=== PATIENT | male | born 1990 | race African-American/Black ===

== ENCOUNTER 2018-02-26 12:52 | Inpatient (IN) ==
[~2018-02-26 12:52] MED LIST: Lidocaine PF 1% Inj 5 ML Syringe INFILTRATN ONE; Phenylephrine/NS 1000 MCG/10ML Syringe IV.PUSH ONE; Succinylcholine Inj 100 MG/5 ML Syringe IV.PUSH ONE
[2018-02-26] MEDS ORDERED: Diphtheria/Tetanus/Pertussis Vaccine Inj 0.5 ML Syringe IM ONE (12:58)
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
[2018-02-26] MEDS ORDERED: ceFAZolin 2 GM Premix Inj 2 GM/50 ML PIGGYBACK IV.SIG ONE (13:13)
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
[2018-02-26 13:21] LABS: Baso % (Auto) 1.1 % (0.0-2.0); Eos % (Auto) 1.1 % (0.0-4.0); Hematocrit 38.1 % (39.0-51.0); Hemoglobin 12.6 gm/dL (13.0-17.0); Lymph # (Auto) 1.6 th/mm3 (1.0-4.8); Mean Corpuscular HGB Conc 33.1 % (32.0-36.0); Mean Corpuscular Hemoglobin 30.4 pg (27.0-34.0); Mean Corpuscular Volume 91.9 fL (80.0-100.0); Mean Platelet Volume 6.9 fL (7.0-11.0); Mono # (Auto) 0.2 th/mm3 (0.0-0.9); Neut # (Auto) 1.3 th/mm3 (1.8-7.7); Neut % (Auto) 40.8 % (16.0-70.0); Platelet Count 252 th/mm3 (150-450); Red Blood Count 4.15 mil/mm3 (4.50-5.90); White Blood Count 3.1 th/mm3 (4.0-11.0)
[2018-02-26 13:38] LABS: Calcium 7.9 mg/dL (8.5-10.1); Carbon Dioxide 20.7 meq/L (21.0-32.0); Potassium 3.1 meq/L (3.5-5.1)
[2018-02-26 13:39] LABS: INR 1.1 Ratio; Prothrombin Time 10.7 sec (9.8-11.6)
[2018-02-26 14:06] LABS: ABG Base Excess -6.9 mmol/L (-2-2); ABG PCO2 34 mmHg (38-42); ABG PO2 350 mmHG (61-120)
[2018-02-26] MEDS ORDERED: Propofol Inj 500 MG/50 ML Vial ONE ×2 (14:07→16:34)
[2018-02-26] MEDS ORDERED: Sodium Bicarbonate 8.4% Inj 50 MEQ/50 ML Syringe ONE (14:09)
[2018-02-26] MEDS: Heparin - SQ 10,000 UNITS/ML Vial ONE ×2 (14:30→17:48)
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
[2018-02-26] MEDS: Propofol 1000 mg/100 ml Inj 1,000 MG/100 ML BOTTLE IV.CONT PRN (15:15)
[2018-02-26] MEDS ORDERED: Promethazine 25 MG Supp RECTAL PRN (15:20)
[2018-02-26] MEDS ORDERED: Bisacodyl 10 MG Supp RECTAL PRN (15:20)
[2018-02-26] MEDS ORDERED: Naloxone Inj 0.4 MG/ML Vial IV.PUSH PRN (15:20)
[2018-02-26] MEDS ORDERED: Post-op Orders (for Pharmacy) OTHER ONE (15:20)
[2018-02-26] MEDS ORDERED: fentaNYL Citrate Inj 100 MCG/2 ML Ampul ONE (15:21)
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
[2018-02-26] MEDS ORDERED: Oral Hygiene Kit OROPHARYNG SCH (16:00)
[2018-02-26 16:21] LABS: Hematocrit 40.8 % (39.0-51.0); Hemoglobin 13.3 gm/dL (13.0-17.0)
[2018-02-26] MEDS: fentaNYL 10 mcg/mL Premix Drip 2,500 MCG/250 ML BAG IV.SIG PRN (17:10)
[2018-02-26 17:40] LABS: Amphetamine Screen,Urine Neg (Neg); Bacteria,Urine Rare /hpf; Barbiturate Screen,Urine Neg (Neg); Bilirubin,Urine Negative (Negative); Cannabinoid Screen,Urine Neg (Neg); Clarity,Urine Clear (Clear); Cocaine Screen,Urine Neg (Neg); Color,Urine Yellow (Yellw/Straw); Glucose,Urine (UA) 50 mg/dL (Negative); Leukocyte Esterase,Urine Negative (Negative); Nitrite,Urine Negative (Negative)
[2018-02-26 17:42] LABS: Opiate Screen,Urine Neg (Neg)
[2018-02-26] MEDS: Sod Chloride 0.9% Inj 1,000 ML IV.CONT SCH ×2 (17:54→21:28)
[2018-02-26 18:04] LABS: ABG Base Excess -4.8 mmol/L (-2-2); ABG PCO2 44 mmHg (38-42); ABG PO2 160 mmHg (61-120)
[2018-02-26] MEDS: Pantoprazole Inj 40 MG Vial IV.PUSH SCH (18:05)
[2018-02-26] MEDS: Midazolam 50 MG/50 ML Inj 50 MG/50 ML BAG IV.CONT PRN (18:26)
[2018-02-26] MEDS ORDERED: Chlorhexidine 0.12% Oral Kit 15 ML UDC OROPHARYNG SCH (20:00)
[2018-02-26] MEDS ORDERED: Docusate Sodium Liq 100 MG/10 ML UDC PO SCH (21:00)
[2018-02-26] MEDS: Chlorhexidine 0.12% Oral Kit 15 ML UDC OROPHARYNG SCH (21:29)
[2018-02-26] MEDS: Senna/Docusate Sodium 8.6/50 MG Tablet PO SCH (21:30)
[2018-02-27] MEDS ORDERED: Chlorhexidine Gluconate 2% 1 Pack (2 Cloths) TOPICAL PRN (04:00)
[2018-02-27] MEDS: Oral Hygiene Kit OROPHARYNG SCH ×4 (04:00→17:05)
[2018-02-27 04:28] LABS: Baso % (Auto) 0.3 % (0.0-2.0); Eos % (Auto) 0.1 % (0.0-4.0); Hematocrit 36.7 % (39.0-51.0); Hemoglobin 12.5 gm/dL (13.0-17.0); Lymph # (Auto) 1.5 th/mm3 (1.0-4.8); Mean Corpuscular HGB Conc 33.9 % (32.0-36.0); Mean Corpuscular Volume 88.3 fL (80.0-100.0); Mean Platelet Volume 7.4 fL (7.0-11.0); Mono # (Auto) 0.8 th/mm3 (0.0-0.9); Mono % (Auto) 6.1 % (0.0-8.0); Neut # (Auto) 10.3 th/mm3 (1.8-7.7); Neut % (Auto) 81.5 % (16.0-70.0); Platelet Count 150 th/mm3 (150-450); Red Blood Count 4.16 mil/mm3 (4.50-5.90); Red Cell Distribution Width 13.7 % (11.6-17.2); White Blood Count 12.7 th/mm3 (4.0-11.0)
[2018-02-27 04:57] LABS: Calcium 7.2 mg/dL (8.5-10.1); Carbon Dioxide 25.9 meq/L (21.0-32.0); Potassium 4.5 meq/L (3.5-5.1)
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
[2018-02-27 05:12] LABS: Total Protein 4.7 g/dL (6.4-8.2)
[2018-02-27 05:49] LABS: ABG Base Excess 0.2 mmol/L (-2-2); ABG PCO2 36 mmHg (38-42); ABG PO2 130 mmHg (61-120)
[2018-02-27] MEDS: fentaNYL 10 mcg/mL Premix Drip 2,500 MCG/250 ML BAG IV.SIG PRN ×2 (06:47→22:02)
[2018-02-27] MEDS: Sod Chloride 0.9% Inj 1,000 ML IV.CONT SCH ×3 (06:48→23:36)
[2018-02-27] MEDS: Midazolam 50 MG/50 ML Inj 50 MG/50 ML BAG IV.CONT PRN ×3 (06:50→22:03)
[2018-02-27] MEDS: Chlorhexidine Gluconate 2% 1 Pack (2 Cloths) TOPICAL SCH (08:07)
[2018-02-27] MEDS: Propofol 1000 mg/100 ml Inj 1,000 MG/100 ML BOTTLE IV.CONT PRN ×2 (08:15→18:51)
[2018-02-27] MEDS: Chlorhexidine 0.12% Oral Kit 15 ML UDC OROPHARYNG SCH ×2 (08:40→20:49)
[2018-02-27] MEDS: Senna/Docusate Sodium 8.6/50 MG Tablet PO SCH ×2 (08:40→20:49)
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
[2018-02-27] MEDS: Pantoprazole Inj 40 MG Vial IV.PUSH SCH (17:05)
[2018-02-27] MEDS: Acetaminophen 325 MG Tablet PO PRN (23:36)
[2018-02-28] MEDS: Oral Hygiene Kit OROPHARYNG SCH ×4 (00:30→18:25)
[2018-02-28] MEDS: Midazolam 50 MG/50 ML Inj 50 MG/50 ML BAG IV.CONT PRN ×5 (03:17→18:32)
[2018-02-28] MEDS: Chlorhexidine Gluconate 2% 1 Pack (2 Cloths) TOPICAL SCH (03:30)
[2018-02-28 05:34] LABS: Baso % (Auto) 0.4 % (0.0-2.0); Eos # (Auto) 0.1 th/mm3 (0.0-0.4); Eos % (Auto) 1.2 % (0.0-4.0); Hematocrit 29.5 % (39.0-51.0); Lymph # (Auto) 0.9 th/mm3 (1.0-4.8); Lymph % (Auto) 9.5 % (9.0-44.0); Mean Corpuscular HGB Conc 34.1 % (32.0-36.0); Mean Corpuscular Volume 91.2 fL (80.0-100.0); Mean Platelet Volume 7.5 fL (7.0-11.0); Mono # (Auto) 0.6 th/mm3 (0.0-0.9); Neut # (Auto) 8.1 th/mm3 (1.8-7.7); Neut % (Auto) 82.9 % (16.0-70.0); Platelet Count 115 th/mm3 (150-450); Red Blood Count 3.24 mil/mm3 (4.50-5.90); Red Cell Distribution Width 13.4 % (11.6-17.2); White Blood Count 9.8 th/mm3 (4.0-11.0)
[2018-02-28 05:45] LABS: ABG Base Excess -1.7 mmol/L (-2-2); ABG PCO2 34 mmHg (38-42); ABG PO2 172 mmHg (61-120)
[2018-02-28 06:02] LABS: Alanine Aminotransferase 429 U/L (12-78); Albumin 1.9 g/dL (3.4-5.0); Alkaline Phosphatase 58 U/L (45-117); Anion Gap 7 meq/L (5-15); Aspartate Aminotransferase 390 U/L (15-37); Blood Urea Nitrogen 8 mg/dL (7-18); Calcium 7.4 mg/dL (8.5-10.1); Carbon Dioxide 24.5 meq/L (21.0-32.0); Chloride 112 meq/L (98-107); Glomerular Filtration Rate Greater Than 89 mL/min (>89); Glucose,Random 93 mg/dL (74-106); Potassium 3.7 meq/L (3.5-5.1); Sodium 143 meq/L (136-145); Total Protein 4.5 g/dL (6.4-8.2)
--- NOTE | 2018-02-28 06:31 | XR ---
EXAM DATE: 02/28/2018 6:29 AM EDT AGE/SEX: 28 years / Male INDICATIONS: Shortness of breath. CLINICAL DATA: This is the patient's subsequent encounter. Patient reports that signs and symptoms h ave been present for 2 days and indicates a pain score of Nonresponsive. MEDICAL/SURGICAL HISTORY: Non-responsive. Non-responsive. COMPARISON: [facility] [place] 1[place], [place]/27/2018. . FINDINGS: A single AP view of the chest demonstrates the lungs to be symmetrically aerated without evidence of mass, infiltrate or effusion. The cardiomediastinal contours are unremarkable. Osseous structures a re intact. Endotracheal tube and enteric tube are noted. CONCLUSION: Lungs are clear. Electronically signed by: Juan Mcfarland MD 02/28/2018 6:30 AM EDT
[2018-02-28] MEDS: Sod Chloride 0.9% Inj 1,000 ML IV.CONT SCH ×2 (08:14→18:27)
[2018-02-28] MEDS: Chlorhexidine 0.12% Oral Kit 15 ML UDC OROPHARYNG SCH ×2 (08:14→20:58)
[2018-02-28] MEDS: Senna/Docusate Sodium 8.6/50 MG Tablet PO SCH ×2 (08:15→20:58)
[2018-02-28] MEDS: fentaNYL 10 mcg/mL Premix Drip 2,500 MCG/250 ML BAG IV.SIG PRN ×2 (09:13→18:27)
[2018-02-28] MEDS ORDERED: Phenylephrine/NS 1000 MCG/10ML Syringe IV.PUSH ONE (12:00)
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
[2018-02-28] MEDS: Pantoprazole Inj 40 MG Vial IV.PUSH SCH (18:25)
[2018-02-28] MEDS ORDERED: fentaNYL Citrate Inj 100 MCG/2 ML Ampul ONE (18:55)
[2018-03-01] MEDS: Oral Hygiene Kit OROPHARYNG SCH ×4 (00:24→15:13)
[2018-03-01] MEDS: Midazolam 50 MG/50 ML Inj 50 MG/50 ML BAG IV.CONT PRN (00:40)
[2018-03-01] MEDS: Chlorhexidine Gluconate 2% 1 Pack (2 Cloths) TOPICAL SCH (04:32)
[2018-03-01] MEDS: Sod Chloride 0.9% Inj 1,000 ML IV.CONT SCH ×2 (04:51→13:59)
--- NOTE | 2018-03-01 05:25 | XR ---
EXAM DATE: 03/01/2018 4:51 AM EDT AGE/SEX: 28 years / Male INDICATIONS: Short of breath. CLINICAL DATA: This is the patient's subsequent encounter. Patient reports that signs and symptoms h ave been present for 1 week and indicates a pain score of 0/10. MEDICAL/SURGICAL HISTORY: Non-responsive. Non-responsive. COMPARISON: C, CHEST 1V SINGLE AP, 02/28/2018. . FINDINGS: Endotracheal tube and enteric tube are noted. The tip of the NG tube is scarring to visualize, belie bing to extend to the distal esophagus. Air bronchogram formation left lower lobe. Cardiomegaly. CONCLUSION: Left lower lobe airspace disease. Electronically signed by: Juan Mcfarland MD 03/01/2018 5:24 AM EDT
[2018-03-01] MEDS: fentaNYL 10 mcg/mL Premix Drip 2,500 MCG/250 ML BAG IV.SIG PRN (06:02)
[2018-03-01 06:18] LABS: Baso % (Auto) 0.3 % (0.0-2.0); Hematocrit 32.8 % (39.0-51.0); Hemoglobin 10.9 gm/dL (13.0-17.0); Lymph # (Auto) 0.5 th/mm3 (1.0-4.8); Lymph % (Auto) 4.2 % (9.0-44.0); Mean Corpuscular HGB Conc 33.3 % (32.0-36.0); Mean Corpuscular Hemoglobin 30.5 pg (27.0-34.0); Mean Corpuscular Volume 91.5 fL (80.0-100.0); Mean Platelet Volume 7.7 fL (7.0-11.0); Mono # (Auto) 0.4 th/mm3 (0.0-0.9); Mono % (Auto) 3.6 % (0.0-8.0); Neut # (Auto) 10.5 th/mm3 (1.8-7.7); Neut % (Auto) 91.9 % (16.0-70.0); Platelet Count 141 th/mm3 (150-450); Red Blood Count 3.59 mil/mm3 (4.50-5.90); Red Cell Distribution Width 13.2 % (11.6-17.2); White Blood Count 11.4 th/mm3 (4.0-11.0)
[2018-03-01 06:53] LABS: Alanine Aminotransferase 328 U/L (12-78); Alkaline Phosphatase 77 U/L (45-117); Anion Gap 9 meq/L (5-15); Aspartate Aminotransferase 207 U/L (15-37); Blood Urea Nitrogen 8 mg/dL (7-18); Calcium 8.4 mg/dL (8.5-10.1); Carbon Dioxide 22.9 meq/L (21.0-32.0); Chloride 113 meq/L (98-107); Glomerular Filtration Rate 78 mL/min (>89); Glucose,Random 101 mg/dL (74-106); Potassium 4.1 meq/L (3.5-5.1); Sodium 145 meq/L (136-145); Total Protein 5.7 g/dL (6.4-8.2)
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
[2018-03-01] MEDS: Chlorhexidine 0.12% Oral Kit 15 ML UDC OROPHARYNG SCH ×2 (10:06→20:16)
[2018-03-01] MEDS: Senna/Docusate Sodium 8.6/50 MG Tablet PO SCH ×2 (10:06→20:18)
--- NOTE | 2018-03-01 10:28 | P.DIET ---
Nutritional Evaluation Type of nutrition evaluation: initial Assessment Assessment: Pt NPO x 3 days. Possibility of extubation today. s/p surgery. Please consult RD if needed.
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
[2018-03-01] MEDS: Pantoprazole Inj 40 MG Vial IV.PUSH SCH (17:05)
[2018-03-01 18:37] LABS: ABG Base Excess -0.6 mmol/L (-2-2); ABG PCO2 51 mmHg (38-42); ABG PO2 121 mmHg (61-120)
[2018-03-01] MEDS: Dexmedetomidine Inj 200 MCG in Sodium Chlor 0.9% Inj 48 ML IV.CONT PRN (22:44)
[2018-03-02] MEDS: Oral Hygiene Kit OROPHARYNG SCH ×4 (01:49→16:57)
[2018-03-02] MEDS: Chlorhexidine Gluconate 2% 1 Pack (2 Cloths) TOPICAL SCH (04:17)
[2018-03-02] MEDS: Dexmedetomidine Inj 200 MCG in Sodium Chlor 0.9% Inj 48 ML IV.CONT PRN (04:19)
[2018-03-02] MEDS: Chlorhexidine 0.12% Oral Kit 15 ML UDC OROPHARYNG SCH ×2 (08:00→20:08)
[2018-03-02] MEDS: Enoxaparin Inj 40 MG/0.4 ML Syringe SQ SCH (10:00)
[2018-03-02] MEDS: Senna/Docusate Sodium 8.6/50 MG Tablet PO SCH ×2 (12:23→20:07)
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
--- NOTE | 2018-03-02 16:01 | P.DIET ---
Nutritional Evaluation Type of nutrition evaluation: follow-up Screening comments: NPO Screen Objective - Objective Diet Order: NPO Assessment Assessment: Pt NPO x 4 [address] if needed. Recommendations: 1. NPO x 4-days 2. Please Consult RD if Needed
[2018-03-02] MEDS: Pantoprazole Inj 40 MG Vial IV.PUSH SCH (17:29)
[2018-03-02] MEDS: Acetaminophen 325 MG Tablet PO PRN (20:26)
[2018-03-03] MEDS: Oral Hygiene Kit OROPHARYNG SCH ×3 (01:57→12:00)
[2018-03-03] MEDS: Acetaminophen 325 MG Tablet PO PRN (02:58)
[2018-03-03] MEDS: Chlorhexidine Gluconate 2% 1 Pack (2 Cloths) TOPICAL SCH (04:39)
[2018-03-03] MEDS: Senna/Docusate Sodium 8.6/50 MG Tablet PO SCH ×2 (08:14→20:38)
[2018-03-03] MEDS: Chlorhexidine 0.12% Oral Kit 15 ML UDC OROPHARYNG SCH (08:15)
[2018-03-03 08:17] LABS: Baso # (Auto) 0.1 th/mm3 (0.0-0.2); Baso % (Auto) 0.7 % (0.0-2.0); Eos # (Auto) 0.1 th/mm3 (0.0-0.4); Eos % (Auto) 1.1 % (0.0-4.0); Hematocrit 28.8 % (39.0-51.0); Hemoglobin 9.6 gm/dL (13.0-17.0); Lymph # (Auto) 0.9 th/mm3 (1.0-4.8); Lymph % (Auto) 8.1 % (9.0-44.0); Mean Corpuscular HGB Conc 33.4 % (32.0-36.0); Mean Corpuscular Hemoglobin 30.4 pg (27.0-34.0); Mean Platelet Volume 6.8 fL (7.0-11.0); Mono # (Auto) 0.7 th/mm3 (0.0-0.9); Mono % (Auto) 6.6 % (0.0-8.0); Neut # (Auto) 9.2 th/mm3 (1.8-7.7); Neut % (Auto) 83.5 % (16.0-70.0); Platelet Count 262 th/mm3 (150-450); Red Blood Count 3.16 mil/mm3 (4.50-5.90); Red Cell Distribution Width 13.5 % (11.6-17.2)
[2018-03-03 08:41] LABS: Alanine Aminotransferase 157 U/L (12-78); Alkaline Phosphatase 82 U/L (45-117); Total Protein 6.6 g/dL (6.4-8.2)
[2018-03-03 08:54] LABS: Albumin 2.2 g/dL (3.4-5.0); Anion Gap 9 meq/L (5-15); Aspartate Aminotransferase 66 U/L (15-37); Blood Urea Nitrogen 11 mg/dL (7-18); Calcium 8.1 mg/dL (8.5-10.1); Carbon Dioxide 24.1 meq/L (21.0-32.0); Chloride 110 meq/L (98-107); Glomerular Filtration Rate Greater Than 89 mL/min (>89); Glucose,Random 91 mg/dL (74-106); Potassium 3.5 meq/L (3.5-5.1); Sodium 143 meq/L (136-145)
[2018-03-03] MEDS: Enoxaparin Inj 40 MG/0.4 ML Syringe SQ SCH (10:26)
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
[2018-03-03] MEDS: Pantoprazole Inj 40 MG Vial IV.PUSH SCH (17:27)
[2018-03-04 05:30] LABS: Baso % (Auto) 0.4 % (0.0-2.0); Eos # (Auto) 0.2 th/mm3 (0.0-0.4); Eos % (Auto) 1.3 % (0.0-4.0); Hematocrit 30.7 % (39.0-51.0); Hemoglobin 10.2 gm/dL (13.0-17.0); Lymph # (Auto) 1.1 th/mm3 (1.0-4.8); Lymph % (Auto) 9.2 % (9.0-44.0); Mean Corpuscular HGB Conc 33.3 % (32.0-36.0); Mean Corpuscular Hemoglobin 30.3 pg (27.0-34.0); Mean Corpuscular Volume 90.9 fL (80.0-100.0); Mean Platelet Volume 7.2 fL (7.0-11.0); Mono # (Auto) 0.7 th/mm3 (0.0-0.9); Mono % (Auto) 6.3 % (0.0-8.0); Neut # (Auto) 9.6 th/mm3 (1.8-7.7); Neut % (Auto) 82.8 % (16.0-70.0); Platelet Count 287 th/mm3 (150-450); Red Blood Count 3.38 mil/mm3 (4.50-5.90); White Blood Count 11.6 th/mm3 (4.0-11.0)
[2018-03-04 06:02] LABS: Anion Gap 10 meq/L (5-15); Blood Urea Nitrogen 10 mg/dL (7-18); Calcium 8.7 mg/dL (8.5-10.1); Carbon Dioxide 26.1 meq/L (21.0-32.0); Chloride 105 meq/L (98-107); Glomerular Filtration Rate Greater Than 89 mL/min (>89); Glucose,Random 103 mg/dL (74-106); Potassium 3.4 meq/L (3.5-5.1); Sodium 141 meq/L (136-145)
[2018-03-04] MEDS: Acetaminophen 325 MG Tablet PO PRN (10:08)
[2018-03-04] MEDS: Senna/Docusate Sodium 8.6/50 MG Tablet PO SCH (10:09)
[2018-03-04] MEDS: Enoxaparin Inj 40 MG/0.4 ML Syringe SQ SCH (10:09)
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
[2018-03-04] MEDS: Pantoprazole Inj 40 MG Vial IV.PUSH SCH (16:31)
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
--- NOTE | 2018-03-04 21:39 | P.DCO ---
- Physical Therapy Order: Evaluate and treat, Improve ambulation, Strength and gait training - Home Health Nursing Order: Medical education, Signs/symptoms of disease process, Medication education-adverse effect, Wound care and dressing changes (Abdominal wound open to air - assess status. No dressing needed. ), Nursing assessment with vital signs - Certification I have seen patient Analilia Carlin on 03/04/18. My clinical findings support the need for the requested home health care services because: Limited mobility due to disease progression, Patient has SOB, Deconditioned with increased weakness, Limited ability to care for self, High risk of falls, Infection with risk of complications I certify that my clinical findings support that this patient is homebound because: Post-op weakness, Unsteady gait/balance, Unsafe to leave home unassisted, Unable to use public transportation
[2018-03-05] MEDS: Senna/Docusate Sodium 8.6/50 MG Tablet PO SCH ×2 (02:51→10:03)
[2018-03-05] MEDS: Enoxaparin Inj 40 MG/0.4 ML Syringe SQ SCH (10:04)
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
[2018-03-05] MEDS ORDERED: Morphine Inj 4 MG/ML Vial IV.PUSH PRN (11:54)
[2018-03-05] MEDS ORDERED: Diatrizoate Meglum/Diatrizoate Sod Liq 9 ML UDC PO ONE (13:15)
[2018-03-05 14:23] LABS: Baso % (Auto) 0.2 % (0.0-2.0); Eos # (Auto) 0.1 th/mm3 (0.0-0.4); Eos % (Auto) 0.5 % (0.0-4.0); Hematocrit 30.1 % (39.0-51.0); Hemoglobin 10.5 gm/dL (13.0-17.0); Lymph # (Auto) 1.8 th/mm3 (1.0-4.8); Lymph % (Auto) 10.3 % (9.0-44.0); Mean Corpuscular HGB Conc 34.7 % (32.0-36.0); Mean Corpuscular Hemoglobin 30.7 pg (27.0-34.0); Mean Corpuscular Volume 88.4 fL (80.0-100.0); Mean Platelet Volume 7.3 fL (7.0-11.0); Mono # (Auto) 1.1 th/mm3 (0.0-0.9); Mono % (Auto) 6.3 % (0.0-8.0); Neut # (Auto) 14.5 th/mm3 (1.8-7.7); Neut % (Auto) 82.7 % (16.0-70.0); Platelet Count 410 th/mm3 (150-450); Red Blood Count 3.41 mil/mm3 (4.50-5.90); Red Cell Distribution Width 14.1 % (11.6-17.2); White Blood Count 17.5 th/mm3 (4.0-11.0)
[2018-03-05 14:40] LABS: Alanine Aminotransferase 113 U/L (12-78); Alkaline Phosphatase 103 U/L (45-117); Total Protein 7.4 g/dL (6.4-8.2)
[2018-03-05 15:05] LABS: Albumin 2.2 g/dL (3.4-5.0); Anion Gap 10 meq/L (5-15); Aspartate Aminotransferase 50 U/L (15-37); Blood Urea Nitrogen 20 mg/dL (7-18); Calcium 8.8 mg/dL (8.5-10.1); Carbon Dioxide 26.7 meq/L (21.0-32.0); Chloride 101 meq/L (98-107); Glomerular Filtration Rate Greater Than 89 mL/min (>89); Glucose,Random 111 mg/dL (74-106); Sodium 138 meq/L (136-145)
[2018-03-05 15:08] LABS: Lymphocytes 6 % (9-44); Monocytes 7 % (0-8); Platelet Estimate Normal (Normal); Platelet Morphology Normal (Normal); Toxic Vacuolation Present
[2018-03-05] MEDS ORDERED: HYDROmorphone PF Inj 2 MG/ML Vial IV.PUSH PRN (16:45)
[2018-03-05] MEDS: Pantoprazole Inj 40 MG Vial IV.PUSH SCH (19:02)
[2018-03-05] MEDS: Piperacil/Tazo 3.375 GM Premix 50 ML IV.SIG SCH ×2 (19:45→23:30)
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
[2018-03-06] MEDS: Senna/Docusate Sodium 8.6/50 MG Tablet PO SCH ×4 (02:24→21:55)
[2018-03-06] MEDS: Piperacil/Tazo 3.375 GM Premix 50 ML IV.SIG SCH ×3 (04:46→17:05)
[2018-03-06 05:46] LABS: Baso # (Auto) 0.1 th/mm3 (0.0-0.2); Baso % (Auto) 0.5 % (0.0-2.0); Eos # (Auto) 0.1 th/mm3 (0.0-0.4); Eos % (Auto) 0.8 % (0.0-4.0); Hematocrit 31.2 % (39.0-51.0); Hemoglobin 10.3 gm/dL (13.0-17.0); Lymph # (Auto) 1.3 th/mm3 (1.0-4.8); Lymph % (Auto) 9.8 % (9.0-44.0); Mean Corpuscular HGB Conc 32.9 % (32.0-36.0); Mean Corpuscular Hemoglobin 29.7 pg (27.0-34.0); Mean Corpuscular Volume 90.2 fL (80.0-100.0); Mean Platelet Volume 7.1 fL (7.0-11.0); Mono % (Auto) 7.6 % (0.0-8.0); Neut # (Auto) 11.2 th/mm3 (1.8-7.7); Neut % (Auto) 81.3 % (16.0-70.0); Platelet Count 456 th/mm3 (150-450); Red Blood Count 3.46 mil/mm3 (4.50-5.90); White Blood Count 13.7 th/mm3 (4.0-11.0)
[2018-03-06 06:12] LABS: Anion Gap 9 meq/L (5-15); Blood Urea Nitrogen 20 mg/dL (7-18); Calcium 8.7 mg/dL (8.5-10.1); Carbon Dioxide 26.8 meq/L (21.0-32.0); Chloride 103 meq/L (98-107); Glomerular Filtration Rate Greater Than 89 mL/min (>89); Glucose,Random 99 mg/dL (74-106); Magnesium 2.6 mg/dL (1.5-2.5); Potassium 3.9 meq/L (3.5-5.1); Sodium 139 meq/L (136-145)
[2018-03-06 07:21] LABS: Lymphocytes 5 % (9-44); Monocytes 2 % (0-8); Tallied Nucleated RBC 1 (0-0)
[2018-03-06 07:22] LABS: Platelet Morphology Clumped (Normal); RBC Morphology Normal (Normal)
[2018-03-06] MEDS: Enoxaparin Inj 40 MG/0.4 ML Syringe SQ SCH (10:13)
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
[2018-03-06] MEDS: Sod Chloride 0.9% Inj 1,000 ML IV.CONT SCH (17:05)
[2018-03-06] MEDS: Pantoprazole Inj 40 MG Vial IV.PUSH SCH (18:16)
[2018-03-07] MEDS: Piperacil/Tazo 3.375 GM Premix 50 ML IV.SIG SCH ×5 (08:12→22:46)
[2018-03-07] MEDS: Sod Chloride 0.9% Inj 1,000 ML IV.CONT SCH ×3 (08:35→22:47)
[2018-03-07] MEDS: Senna/Docusate Sodium 8.6/50 MG Tablet PO SCH ×2 (08:54→20:22)
[2018-03-07] MEDS: Enoxaparin Inj 40 MG/0.4 ML Syringe SQ SCH (09:01)
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
[2018-03-07] MEDS: Pantoprazole Inj 40 MG Vial IV.PUSH SCH (17:54)
[2018-03-08 04:15] LABS: Baso # (Auto) 0.1 th/mm3 (0.0-0.2); Baso % (Auto) 0.5 % (0.0-2.0); Eos # (Auto) 0.2 th/mm3 (0.0-0.4); Eos % (Auto) 1.2 % (0.0-4.0); Hematocrit 30.1 % (39.0-51.0); Hemoglobin 10.2 gm/dL (13.0-17.0); Lymph # (Auto) 1.7 th/mm3 (1.0-4.8); Lymph % (Auto) 9.7 % (9.0-44.0); Mean Corpuscular HGB Conc 33.9 % (32.0-36.0); Mean Corpuscular Hemoglobin 30.5 pg (27.0-34.0); Mean Corpuscular Volume 89.9 fL (80.0-100.0); Mono % (Auto) 5.6 % (0.0-8.0); Neut # (Auto) 14.3 th/mm3 (1.8-7.7); Platelet Count 500 th/mm3 (150-450); Red Blood Count 3.35 mil/mm3 (4.50-5.90); Red Cell Distribution Width 14.1 % (11.6-17.2); White Blood Count 17.2 th/mm3 (4.0-11.0)
[2018-03-08] MEDS: Piperacil/Tazo 3.375 GM Premix 50 ML IV.SIG SCH ×4 (04:17→22:23)
[2018-03-08 04:41] LABS: Calcium 8.4 mg/dL (8.5-10.1); Carbon Dioxide 24.6 meq/L (21.0-32.0); Potassium 3.7 meq/L (3.5-5.1)
[2018-03-08 05:01] LABS: Platelet Morphology Normal (Normal); Stomatocytes 1+
[2018-03-08] MEDS: Senna/Docusate Sodium 8.6/50 MG Tablet PO SCH ×2 (08:20→21:42)
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
[2018-03-08] MEDS: Enoxaparin Inj 40 MG/0.4 ML Syringe SQ SCH (11:23)
[2018-03-08] MEDS: Sod Chloride 0.9% Inj 1,000 ML IV.CONT SCH ×3 (11:24→22:24)
[2018-03-08] MEDS: Pantoprazole Inj 40 MG Vial IV.PUSH SCH (17:31)
[2018-03-09 01:27] VITALS: PULSE 76; O2SAT 99
[2018-03-09] MEDS: Piperacil/Tazo 3.375 GM Premix 50 ML IV.SIG SCH (06:12)
[2018-03-09 08:26] VITALS: BP 116/78; RESP 16; TEMP 98.8
[2018-03-09] MEDS: Enoxaparin Inj 40 MG/0.4 ML Syringe SQ SCH (10:48)
[2018-03-09] MEDS: Sod Chloride 0.9% Inj 1,000 ML IV.CONT SCH (14:39)
[2018-03-09] MEDS: Senna/Docusate Sodium 8.6/50 MG Tablet PO SCH (14:40)
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
== END 2018-03-09 17:39 | disposition home health service (06) ==
LOC: NEPI 12:52 → N03 13:05 → EDBD 16:04 → N03 16:04 → N06 03-04 14:13
PROVIDERS: ADMIT Surgery; ATTEND Surgery